=== PATIENT | male | born 1995 | race Caucasian/White ===

== ENCOUNTER 2023-06-11 19:01 | Emergency (ER) | payer BC ==
[~2023-06-11] VITALS: Ht 180.3 cm; Wt 82.0 kg
[2023-06-11 19:05] VITALS: O2SAT 100
[2023-06-11 20:22] LABS: BASOPHILS % 0.5 % (0.0-2.0); HEMOGLOBIN. 14.1 g/dL (14.0-18.0); LYMPHOCYTES % 13.8 % (20.0-50.0); MEAN CORPUSCULAR HEMOGLOBIN 32.6 pg (28.0-32.0); MEAN CORPUSCULAR HGB CONC 35.3 g/dL (31.0-37.0); MEAN CORPUSCULAR VOLUME 92.3 fL (80.0-94.0); MEAN PLATELET VOLUME 8.7 fl (7.4-10.4); MONOCYTES % 11.6 % (2.0-8.0); NEUTROPHILS % 74.1 % (40.0-76.0); PLATELET 204 x1000/uL (130-400); RED BLOOD CELL COUNT 4.33 mill/uL (4.7-6.1); RED CELL DISTRIBUTION WIDTH 13.1 % (11.6-14.6); WHITE BLOOD COUNT 5.8 x1000/uL (4.5-11.0)
[2023-06-11 20:33] LABS: CHLORIDE 100 mEq/L (98-107); POTASSIUM 3.8 mEq/L (3.5-5.1); SODIUM 136 mEq/L (136-145)
[2023-06-11 20:34] LABS: CARBON DIOXIDE 29 mEq/L (21-32)
[2023-06-11 20:35] LABS: CALCIUM 9.8 mg/dL (8.7-10.4)
[2023-06-11 20:39] LABS: CREATININE 0.7 mg/dL (0.6-1.3); GLUCOSE 89 mg/dL (70-105); UREA NITROGEN BLOOD 5 mg/dL (9-23)
[2023-06-11 20:40] LABS: ETHANOL BLOOD < 10 mg/dL (<10)
[2023-06-11 20:41] LABS: ALANINE AMINOTRANSFERASE 98 IU/L (10-49); ALBUMIN 4.7 g/dL (3.2-4.8); ASPARTATE AMINOTRANSFERASE 49 IU/L (<34)
[2023-06-11 20:42] LABS: BILIRUBIN TOTAL 0.8 mg/dL (0.1-1.0); PROTEIN TOTAL 7.2 g/dL (6.0-8.3)
[2023-06-11 20:44] LABS: TROPONIN I HIGH SENSITIVITY < 4 ng/L (3.0-53)
[2023-06-11] MEDS ORDERED: MAG-55 MT (20:50)
[2023-06-11 22:37] VITALS: BP 129/82; PULSE 75; RESP 15; TEMP 98.9
== END 2023-06-11 22:36 | disposition home or self-care (01) ==
LOC: ER 19:01
DX: R07.89 Other chest pain (principal); K21.9 Gastro-esophageal reflux disease without esophagitis; F41.9 Anxiety disorder, unspecified
CPT/HCPCS: 80053; 80320; 85025; 84484; 36415; 71045; 93005; 99285; Z7610; G0480